=== PATIENT | female | born 1990 | race Caucasian/White ===

== ENCOUNTER 2016-10-28 08:15 | Outpatient (CLI) | payer OTHER ==
[~2016-10-28] VITALS: Ht 162.6 cm; Wt 99.8 kg
== END 2016-10-28 09:25 | disposition home or self-care (01) ==
LOC: 2LDRP 08:15 → BC 08:15
DX: O36.8130 Decreased fetal movements, third trimester, not applicable or unspecified (principal); O42.913 Preterm premature rupture of membranes, unspecified as to length of time between rupture and onset of labor, third trimester; Z3A.36 36 weeks gestation of pregnancy

== ENCOUNTER 2016-11-08 15:00 | Outpatient (CLI) | payer OTHER | END 2016-11-08 18:15 | disposition home or self-care (01) | LOC: BC 15:00 → 2LDRP 15:00 → BC 18:15 | DX: O47.1 False labor at or after 37 completed weeks of gestation (principal); Z3A.39 39 weeks gestation of pregnancy ==

== ENCOUNTER 2016-11-09 21:40 | Outpatient (CLI) | payer OTHER | END 2016-11-09 23:20 | disposition home or self-care (01) | LOC: BC 21:40 | DX: O47.1 False labor at or after 37 completed weeks of gestation (principal); Z3A.38 38 weeks gestation of pregnancy ==

== ENCOUNTER 2016-11-12 00:35 | Outpatient (CLI) | payer OTHER | END 2016-11-12 02:35 | disposition home or self-care (01) | LOC: 2LDRP 00:35 → BC 00:35 | DX: O47.1 False labor at or after 37 completed weeks of gestation (principal); Z3A.38 38 weeks gestation of pregnancy ==

== ENCOUNTER 2016-11-14 13:40 | Inpatient (IN) | payer SELFPAY ==
[~2016-11-14] VITALS: Ht 162.6 cm; Wt 100.7 kg
--- NOTE | ~2016-11-14 | HP ---
ADMIT: 11/14/2016 RM/LOC: 219 [facility] MR#: [id number] [facility] [address], [place] [id number] SALLY RICHARD [address] [place] [address] History and Physical SEX: F AGE: 26 : 1990 DATE OF SERVICE: CHIEF COMPLAINT: Induction of labor. HISTORY OF PRESENT ILLNESS: This is a 26-year-old female, 2, para 1, who presents to the [facility] with an intrauterine at 39 weeks' gestation for induction of labor. Her has been uncomplicated. Recently in the office, she was noted to have 2+ protein, although she has a normal blood pressure. She also has been in and out of triage at the [facility] at least 3 times over the last week for uterine contractions. At this time, she presents for induction of labor. LABORATORY DATA: Blood type is A negative. Antibody screen negative. Hepatitis B surface antigen negative, RPR nonreactive, rubella immune, gonorrhea chlamydia is negative. Pap is normal. Diabetic screen 139. A 3-hour glucose tolerance test 110, 163, 128, and 119. Group B strep is negative. PAST OBSTETRICAL HISTORY: She had 1 term spontaneous vaginal delivery, baby weighed 8 pounds 4 ounces. PAST MEDICAL HISTORY: She denies hypertension, diabetes, asthma, kidney, or thyroid disease. PAST SURGICAL HISTORY: Appendectomy. SOCIAL HISTORY: She denies tobacco, alcohol, or drug use. She is and the father of the baby is involved. ALLERGIES: NO KNOWN DRUG ALLERGIES. CURRENT MEDICATIONS: 1. vitamins. 2. Ferrous sulfate 325 mg daily. PHYSICAL EXAMINATION: VITAL SIGNS: Temperature 97.7, blood pressure is 133/81, pulse 107, respirations 16. GENERAL: This is a pleasant female, in no acute distress. HEENT: Head is normocephalic, atraumatic. Pupils are equal, round, and reactive to light and accommodation. Extraocular muscles are intact. NECK: Supple. HEART: Regular rate and rhythm. LUNGS: Clear bilaterally. ABDOMEN: Soft, nontender, and nondistended. Gravid. EXTREMITIES: Nontender. : heart tones are 150s baseline, moderate variability is present, 15 ADMIT: 11/14/2016 RM/LOC: 219 [facility] MR#: [id number] [address] [address] SALLY RICHARD P [address] [place] [address] History and Physical SEX: F AGE: 26 : 1990 x 15 accelerations are present. Decelerations are absent. Uterine contractions are irregular. Her cervix is 2 cm, 50% effaced, -2 station. Fetus is vertex. Estimated weight 7.5 to 8 pounds. IMPRESSION: 1. This is a 26-year-old female, 2, para 1 with an intrauterine at 39 weeks' gestation. 2. Group B streptococcus negative. PLAN: At this time, we do plan to proceed with induction of labor. We will start Pitocin and plan to place a Flores bulb. We will use assisted rupture of membranes as needed and anticipate a spontaneous vaginal delivery. Randa Greene MD/ alona JOB #: [id number] CC: Randa Greene, Attending Physician Randa Greene, Family Physician
--- NOTE | ~2016-11-14 | FD ---
ADMIT: 11/14/2016 RM/LOC: 219 [facility] MR#: [id number] [facility] [address] [place] [id number] SALLY RICHARD [address] [place], [place] [id number] Final Diagnosis SEX: F AGE: 26 : 1990 ADMISSION DATE: 11/14/2016 DISCHARGE DATE: 11/16/2016 FINAL DIAGNOSIS: Status post spontaneous vaginal delivery at term. PROCEDURE: 11/15/2016 spontaneous vaginal delivery with delivery of viable female, 7 pounds 6.5 ounces, Apgars 7 and 9. Randa Greene MD/ adam JOB #: [id number] CC: Randa Greene MD, Attending Physician Randa Greene MD, Family Physician
[2016-11-16] MEDS ORDERED: MOTRIN-DPS800 MG PO (19:28)
[2016-11-16] MEDS ORDERED: NIPPLECREAM TP (19:28)
[2016-11-16] MEDS ORDERED: PRENATAL VIT1 TAB PO (19:28)
[2016-11-16] MEDS ORDERED: IRON325 M1 PO (19:28)
--- NOTE | 2016-12-07 09:02 | OR ---
ADMIT: 11/14/2016 RM/LOC: 219 [facility] MR#: [id number] [address] [address] SALLY RICHARD [address] [place] [address] Operative/Delivery Room Report SEX: F AGE: 26 : 1990 SURGERY DATE: 11/15/2016 SURGEON: Randa Greene MD PROCEDURE: Removal of epidural catheter. DESCRIPTION OF PROCEDURE: This is a 26-year-old female, 2, now para 2, who delivered viable female infant with an epidural in place. Following delivery, she was placed in the sitting position. The epidural catheter was removed without any difficulty. The tip was noted to be intact. The patient tolerated the procedure well. She is now recovering in her Labor and Delivery suite with her . Randa Greene MD/ alona JOB #: [id number] CC: Randa Greene, Attending Physician Randa Greene, Family Physician
--- NOTE | 2016-12-07 09:02 | OR ---
ADMIT: 11/14/2016 RM/LOC: 219 [facility] MR#: [id number] [facility] [address] [place] [id number] SALLY RICHARD [address] [place] [address] Operative/Delivery Room Report SEX: F AGE: 26 : 1990 SURGERY DATE: 11/15/2016 SURGEON: Randa Greene MD PREOPERATIVE DIAGNOSES: 1. Intrauterine at 39 and 1/7th weeks' gestation. 2. Active labor. 3. Group B streptococcus negative. POSTOPERATIVE DIAGNOSES: 1. Intrauterine at 39 and 1/7th weeks' gestation. 2. Active labor. 3. Group B streptococcus negative. 4. Delivery of a viable female at 0654 hours, weighing 7 pounds 6.5 ounces with scores of 7 at 1 minute, 9 at 5 minutes. PROCEDURE: Spontaneous vaginal delivery with repair of first-degree laceration. ANESTHESIA: Epidural. COMPLICATIONS: None. ESTIMATED BLOOD LOSS: 200 mL. FLUIDS: Crystalloid. INDICATIONS: This is a 26-year-old female, 2, para 1, who [facility] with an intrauterine at 39 weeks' gestation for induction of labor. Her was uncomplicated. She was started on Pitocin. A Flores bulb was placed. Assisted rupture of membranes was then performed and she was 4 cm dilated. She did request to receive an epidural for pain control. She progressed to be complete in a satisfactory fashion at which time, she was allowed to push bringing the infant's vertex to the perineum. DESCRIPTION OF PROCEDURE: The patient was noted to be complete. She was placed in a dorsal lithotomy position and prepped and draped in usual sterile fashion. She was asked to push and delivered the 's vertex in the right occiput anterior position over the midline. Nuchal cord x1 was noted and this was relieved around the infant's vertex. At this time, the anterior shoulder did not deliver easily. She was therefore placed in Hanane position and suprapubic pressure was applied. The anterior shoulder delivered immediately following this. The posterior shoulder and the remainder of the then quickly delivered. The did have spontaneous cry and movement of all 4 ADMIT: 11/14/2016 RM/LOC: 219 [facility] MR#: [id number] [address] [address] HILARY SALLY P [address] [place] [address] Operative/Delivery Room Report SEX: F AGE: 26 : 1990 extremities. There is less than 10 seconds from delivery of the head to the shoulder. The was passed to the mother's abdomen where nursing personnel were in attendance. After 1 minute, the cord was clamped x2 and cut. Cord blood was obtained. Twenty units of Pitocin were infused with IV fluids to help firm the uterus. The placenta delivered intact spontaneously. The uterus was not explored at this time. Examination of the cervix and vaginal vault did not reveal any lacerations. She did have a first degree laceration at the 5 o'clock position just inside the introitus. This was repaired with a single [id number] stitch of 3-0 Vicryl and an interrupted stitch of 3-0 Vicryl. The patient tolerated the procedure well. Sponge, needle, and instrument counts were correct. The patient did recover in her Labor and Delivery suite with her infant. Randa Greene MD/ alona JOB #: [id number] CC: Randa Greene, Attending Physician Randa Greene, Family Physician
== END 2016-11-16 11:00 | disposition home or self-care (01) | DRG 775 ==
LOC: 2LDRP 13:40 → BC 13:40 → 2LDRP 14:24 → BC 11-21 12:13
PROVIDERS: ADMIT Obstetrics & Gynecology
PROC: 3E033VJ Introduction of Other Hormone into Peripheral Vein, Percutaneous Approach (ICD-10-PCS; principal; 2016-11-15)
PROC: 0HQ9XZZ Repair Perineum Skin, External Approach (ICD-10-PCS; principal; 2016-11-15)
PROC: 3E0234Z Introduction of Serum, Toxoid and Vaccine into Muscle, Percutaneous Approach (ICD-10-PCS; principal; 2016-11-15)
PROC: 10907ZC Drainage of Amniotic Fluid, Therapeutic from Products of Conception, Via Natural or Artificial Opening (ICD-10-PCS; principal; 2016-11-15)
PROC: 10E0XZZ Delivery of Products of Conception, External Approach (ICD-10-PCS; principal; 2016-11-15)
DX: O69.81X0 Labor and delivery complicated by cord around neck, without compression, not applicable or unspecified (principal); D64.9 Anemia, unspecified; O99.02 Anemia complicating childbirth; O75.89 Other specified complications of labor and delivery; O70.0 First degree perineal laceration during delivery; Z3A.39 39 weeks gestation of pregnancy; Z37.0 Single live birth